=== PATIENT | female | born 1950 | race Caucasian/White ===

== ENCOUNTER 2022-04-22 06:05 | Day surgery (SDC) | payer MEDICARE ==
[2022-04-21 11:07] LABS: BASOPHILS % (AUTO) 0.6 % (0-1); EOSINOPHILS # (AUTO) 0.2 X10'3 (0-0.9); EOSINOPHILS % (AUTO) 1.7 % (0-6); HEMATOCRIT 43.7 % (35.0-45.0); HEMOGLOBIN 14.6 g/dl (12.0-16.0); LYMPHOCYTES # (AUTO) 1.8 X10'3 (1.1-4.8); LYMPHOCYTES % (AUTO) 20.4 % (21-51); MEAN CORPUSCULAR HEMOGLOBIN 30.6 PG (27.0-31.0); MEAN CORPUSCULAR HGB CONC 33.5 g/dL (33.0-36.5); MEAN CORPUSCULAR VOLUME 91.3 FL (78-98); MEAN PLATELET VOLUME 8.2 FL (7.4-10.4); MONOCYTES # (AUTO) 0.8 X10'3 (0-0.9); MONOCYTES % (AUTO) 8.9 % (2-12); NEUTROPHILS # (AUTO) 5.9 X10'3 (1.8-7.7); NEUTROPHILS % (AUTO) 68.4 % (42-75); PLATELET COUNT 261 X10'3 (140-440); RED BLOOD COUNT 4.79 X10'6 (4.20-5.60); RED CELL DISTRIBUTION WIDTH 14.6 % (11.5-14.5); WHITE BLOOD COUNT 8.7 X10'3 (4.5-11.0)
[2022-04-21 11:16] LABS: ALBUMIN 3.8 G/DL (3.4-5.0); ANION GAP 9 (8-16); BLOOD UREA NITROGEN 12 MG/DL (7-18); BUN/CREATININE RATIO 19.4 (6.6-38.0); CALCIUM 9.7 MG/DL (8.5-10.1); CHLORIDE 108 MMOL/L (99-107); CREATININE 0.62 MG/DL (0.40-0.90); GLUCOSE 93 MG/DL (70-104); POTASSIUM 3.9 MMOL/L (3.5-5.1); SODIUM 143 MMOL/L (135-145); TOTAL CARBON DIOXIDE 25.7 MMOL/L (24-32); eGFR > 90 ML/MIN
[2022-04-21 11:20] LABS: APTT 26 SECONDS (22-32)
[~2022-04-22] VITALS: Ht 157.5 cm; Wt 84.1 kg
[2022-04-22] VITALS (11 sets, daily range): BP systolic 136–161; BP diastolic 92–111
[~2022-04-22 06:05] MED LIST: ATOR10TA87 PO; LOSA25TA96 PO; METO200T49 PO
[2022-04-22] MEDS ORDERED: diphenhydrAMINE 25mg capsule PO PRN (06:25)
[2022-04-22] MEDS ORDERED: LORazepam 0.5 MG tablet PO PRN (06:25)
[2022-04-22] MEDS ORDERED: normal saline 1,000 ML IV SCH (06:25)
[2022-04-22] MEDS ORDERED: ALEN70TA80 PO (06:38)
[2022-04-22] MEDS ORDERED: APIX5TAB3 PO (06:38)
[2022-04-22] MEDS ORDERED: DILT-88 PO (06:38)
[2022-04-22] MEDS ORDERED: nitroGLYCERIN-Tridil 50MG/D5W 250 ML IV ONE (06:40)
[2022-04-22] MEDS ORDERED: iohexol 350MG/ML 100ml bottle IV ONE (06:41)
[2022-04-22] MEDS ORDERED: verapamil 2.5 mg/ml inj IV ONE (06:41)
[2022-04-22] MEDS ORDERED: midazolam 1 mg/ML 2ml injection ONE (06:41)
[2022-04-22] MEDS ORDERED: LIDOcaine 1% (10mg/ml) 2ml vial ONE (06:41)
[2022-04-22] MEDS ORDERED: heparin 1,000unit/ml 10ml vial 10 ML ONE (06:41)
[2022-04-22] MEDS ORDERED: fentaNYL/PF 50MCG/1 ML 2ML syringe ONE (06:42)
[2022-04-22] MEDS ORDERED: normal saline 1000ml 1,000 ML IV SCH (09:30)
[2022-04-22] MEDS ORDERED: pantoprazole 40mg Tablet.DR PO PRN (09:30)
== END 2022-04-22 15:00 | disposition home or self-care (01) ==
LOC: SSTAY O 06:05
PROVIDERS: ATTEND Internal Medicine Cardiovascular Disease
DX: R94.39 Abnormal result of other cardiovascular function study (principal); R07.9 Chest pain, unspecified; E78.5 Hyperlipidemia, unspecified; I25.10 Atherosclerotic heart disease of native coronary artery without angina pectoris; I10 Essential (primary) hypertension; I34.0 Nonrheumatic mitral (valve) insufficiency; I48.91 Unspecified atrial fibrillation; G47.30 Sleep apnea, unspecified; Z79.899 Other long term (current) drug therapy; Z98.890 Other specified postprocedural states
CPT/HCPCS: 36415; 76937; 80048; 85025; 85610; 85730; 93005; 93458; 99152; 99153; C1769; C1894; J1644; J2250; J3010; J3490; J7030; Q0163; Q9967; A4620; A5120; A6258; A6402

== ENCOUNTER 2022-11-11 13:56 | Outpatient (CLI) | payer MEDICARE ==
[~2022-11-11 13:56] MED LIST changes: +ALEN70TA80 PO; +APIX5TAB3 PO; -ATOR10TA87 PO; +ATOR20TA PO; +DILT240C90 PO; +FURO20TA4 PO; +LOSA100T3 PO; -LOSA25TA96 PO; +NITR0.4T51 SL; +POTA-206 PO
== END 2022-11-11 23:59 | disposition home or self-care (01) ==
LOC: CARD DIAG 13:56
PROVIDERS: ATTEND Internal Medicine Cardiovascular Disease
DX: I08.3 Combined rheumatic disorders of mitral, aortic and tricuspid valves (principal); R06.02 Shortness of breath
CPT/HCPCS: 93306

== ENCOUNTER 2024-07-20 10:30 | Day surgery (SDC) | payer MEDICARE ==
[2024-07-19 12:18] LABS: BASOPHILS % (AUTO) 0.6 % (0-1); EOSINOPHILS # (AUTO) 0.2 X10'3 (0-0.9); EOSINOPHILS % (AUTO) 2.5 % (0-6); HEMATOCRIT 43.2 % (35.0-45.0); HEMOGLOBIN 14.7 g/dl (12.0-16.0); LYMPHOCYTES % (AUTO) 25.5 % (21-51); MEAN CORPUSCULAR HEMOGLOBIN 31.5 PG (27.0-31.0); MEAN CORPUSCULAR HGB CONC 34.1 g/dL (33.0-36.5); MEAN CORPUSCULAR VOLUME 92.3 FL (78-98); MEAN PLATELET VOLUME 8.5 FL (7.4-10.4); MONOCYTES # (AUTO) 0.7 X10'3 (0-0.9); MONOCYTES % (AUTO) 9.6 % (2-12); NEUTROPHILS # (AUTO) 4.7 X10'3 (1.8-7.7); NEUTROPHILS % (AUTO) 61.8 % (42-75); PLATELET COUNT 262 X10'3 (140-440); RED BLOOD COUNT 4.68 X10'6 (4.20-5.60); WHITE BLOOD COUNT 7.7 X10'3 (4.5-11.0)
[2024-07-19 12:20] LABS: ALBUMIN 3.9 G/DL (3.4-5.0); ANION GAP 10 (8-16); BLOOD UREA NITROGEN 11 MG/DL (7-18); BUN/CREATININE RATIO 12.4 (10.0-20.0); CALCIUM 9.6 MG/DL (8.5-10.1); CHLORIDE 105 MMOL/L (99-107); CREATININE 0.89 MG/DL (0.40-0.90); GLUCOSE 102 MG/DL (70-104); POTASSIUM 4.6 MMOL/L (3.5-5.1); SODIUM 145 MMOL/L (135-145); TOTAL CARBON DIOXIDE 29.6 MMOL/L (24-32); eGFR 62 ML/MIN
[2024-07-19 12:23] LABS: APTT 27 SECONDS (22-32); INR 1.2 INR; PROTHROMBIN TIME 12.4 SECONDS (9.0-12.0)
[~2024-07-20] VITALS: Ht 157.5 cm; Wt 83.6 kg
[2024-07-20] VITALS (12 sets, daily range): BP systolic 117–137; BP diastolic 4–93; PULSE 70–82; RESP 11–20; TEMP 98.7; O2SAT 77–99
[~2024-07-20 10:30] MED LIST changes: +LOSA-418 PO; -LOSA100T3 PO; +METO200T37 PO; -METO200T49 PO
[2024-07-20] MEDS ORDERED: POTA-197 PO (11:01)
[2024-07-20] MEDS: LORazepam 0.5 MG tablet PO PRN (11:16)
[2024-07-20] MEDS: diphenhydrAMINE 25mg capsule PO PRN (11:16)
[2024-07-20] MEDS: normal saline 1,000 ML IV SCH (11:17)
[2024-07-20] MEDS ORDERED: LIDOcaine 1% (10mg/ml) 2ml vial ONE (11:24)
[2024-07-20] MEDS ORDERED: fentaNYL/PF 50MCG/1 ML 2ML syringe ONE (11:25)
[2024-07-20] MEDS ORDERED: verapamil 2.5 mg/ml inj IV ONE (11:25)
[2024-07-20] MEDS ORDERED: midazolam 1 mg/ML 2ml injection ONE (11:25)
[2024-07-20] MEDS ORDERED: iohexol 350 MG/ML 50ML vial IV ONE (11:25)
[2024-07-20] MEDS ORDERED: heparin 1,000unit/ml 10ml vial 10 ML ONE (11:25)
[2024-07-20] MEDS ORDERED: iohexol 350MG/ML 100ml bottle IV ONE (11:25)
[2024-07-20] MEDS ORDERED: nitroGLYCERIN 500mcg/5mL D5W 5 ML IV ONE ×2 (11:26→11:56)
[2024-07-20 12:11] LABS: ISTAT HGB ART 13.6 g/dl (12.0-16.0); ISTAT Hct ART 40 %PCV (35-45); ISTAT O2 SATURATION ARTERIAL 88 % (95-98); ISTAT SOURCE ART
[2024-07-20] MEDS ORDERED: LORazepam 0.5 MG tablet PO PRN (12:15)
[2024-08-01 15:32] LABS: ISTAT HGB MIX 13.3 g/dl (12.0-16.0); ISTAT Hct MIX 39 %PCV (35-45); ISTAT O2 SATURATION MIX VENOUS 56 % (60-80); ISTAT SOURCE VEN
== END 2024-07-20 17:00 | disposition home or self-care (01) ==
LOC: SSTAY O 10:30
PROVIDERS: ATTEND Internal Medicine Cardiovascular Disease
DX: I34.0 Nonrheumatic mitral (valve) insufficiency (principal); I25.10 Atherosclerotic heart disease of native coronary artery without angina pectoris; I11.0 Hypertensive heart disease with heart failure; I50.32 Chronic diastolic (congestive) heart failure; E78.5 Hyperlipidemia, unspecified; I48.20 Chronic atrial fibrillation, unspecified; G47.30 Sleep apnea, unspecified; Z79.01 Long term (current) use of anticoagulants; Z79.899 Other long term (current) drug therapy; Z90.49 Acquired absence of other specified parts of digestive tract; Z98.891 History of uterine scar from previous surgery; Z88.0 Allergy status to penicillin; Z82.3 Family history of stroke; Z82.49 Family history of ischemic heart disease and other diseases of the circulatory system; Z83.3 Family history of diabetes mellitus
CPT/HCPCS: 36415; 80048; 82803; 85014; 85025; 85610; 85730; 93005; 93460; 99152; A6258; A6402; C1725; C1751; C1894; J1644; J2003; J2250; J3010; J3490; J7030; Q0163; Q9967; Z7610; 99153; A6449

== ENCOUNTER 2024-10-17 11:40 | Emergency (ER) | payer MEDICARE ==
[~2024-10-17] VITALS: Ht 157.5 cm; Wt 82.8 kg
[~2024-10-17 11:40] MED LIST changes: -ALEN70TA80 PO; -LOSA-418 PO; +POTA-197 PO; -POTA-206 PO
[2024-10-17 13:31] VITALS: BP 126/78; PULSE 84; RESP 16; TEMP 98.8; O2SAT 98
== END 2024-10-17 13:32 | disposition home or self-care (01) ==
LOC: ER 11:40
DX: S20.211A Contusion of right front wall of thorax, initial encounter (principal); I48.91 Unspecified atrial fibrillation; Z88.0 Allergy status to penicillin; Z79.899 Other long term (current) drug therapy; Z87.442 Personal history of urinary calculi; Z72.89 Other problems related to lifestyle; Z60.2 Problems related to living alone; X58.XXXA Exposure to other specified factors, initial encounter; Y93.89 Activity, other specified; Y92.89 Other specified places as the place of occurrence of the external cause; Y99.8 Other external cause status
CPT/HCPCS: 71101; 99283

== ENCOUNTER 2025-03-11 08:38 | Outpatient (CLI) | payer MEDICARE ==
--- NOTE | 2025-03-11 11:45 | RADIOLOGY REPORT ---
PROCEDURE: MR MRI HEAD INDICATION: VERTIGO,ABNORMAL GAIT EXAM DATE: 03/11/2025 09:22 AM COMPARISON: None TECHNIQUE: MRI of the brain without intravenous contrast. FINDINGS: Limited by motion. Diffusion weighted images of the brain demonstrate no evidence of acute infarction. There is no evidence of acute intracranial hemorrhage, extra-axial collection, mass effect, midline s hift, herniation or hydrocephalus. The ventricles, sulci and cisterns appear age appropriate. Mild changes of chronic microvascular ischemic disease. There are no signal abnormalities on the susceptibility weighted sequences. The major vascular flow voids are present. The visualized paranasal sinuses and mastoid air cells are clear. The surrounding soft tissues and o sseous structures are unremarkable. IMPRESSION: 1. Limited by motion. No evidence of acute infarction, intracranial hemorrhage, mass effect or hydroc ephalus. Mild changes of chronic microvascular ischemic disease. HS:Y
== END 2025-03-11 23:59 | disposition home or self-care (01) ==
LOC: MRI 08:38
PROVIDERS: ATTEND Specialist
DX: I67.89 Other cerebrovascular disease (principal); H81.399 Other peripheral vertigo, unspecified ear; R26.9 Unspecified abnormalities of gait and mobility
CPT/HCPCS: 70551

== ENCOUNTER 2025-07-24 11:00 | Emergency (ER) | payer MEDICARE, OTHER ==
[~2025-07-24] VITALS: Ht 157.5 cm; Wt 83.8 kg
[2025-07-24 11:12] VITALS: BP 134/94; PULSE 74; RESP 18; O2SAT 96
[2025-07-24 12:32] VITALS: TEMP 98.1
[2025-07-24] MEDS ORDERED: HYDR-3965 PO ×2 (12:57→12:58)
--- NOTE | 2025-07-24 12:59 | Physician Documentation ---
History of Present Illness ~ Chief Complaint: Mechanical Fall Stated Complaint: RIB PAIN Time Seen by MD: 12:28 OK to notify your PCP?: No Primary Medical Doctor: Monico Francois HPI 75-year-old female presents to the ED after falling yesterday. She was seen by her primary care today and he sent her to the ED for an x-ray of her chest. Denies any head strikes but is positive for thinners. She says it hurts for her to take a deep breath. States that the pain is primarily in the sternal area. It is tender to touch and painful when taking a deep breath Day of Fall: Jul 24, 2025 Tetanus within 5 Years?: Yes Medication Reconciliation Allergies: Coded Allergies: penicillin V (Verified Allergy, Intermediate, RASH, ITCHING, 07/24/25) meperidine (Verified Adverse Reaction, Mild, N/V, 07/24/25) Scheduled Apixaban (Eliquis), 1 TAB PO Q12H, (Reported) Atorvastatin Calcium* (Lipitor*), 0.5 TABLET PO QPM, (Reported) Diltiazem Hcl (Cardizem Cd), 1 CAP PO DAILY Furosemide (Furosemide), 1 TAB PO DAILY Metoprolol Succinate (Metoprolol Succinate), 200 MG PO DAILY, (Reported) Potassium Chloride (Klor-Con M20), 1 TAB PO DAILY, (Reported) Scheduled PRN Hydrocodone Bit/Acetaminophen 5/325 MG (Preston 5/325 MG), 1 TAB PO Q6H PRN for pain Nitroglycerin SL* (Nitrostat SL*), 1 TAB SL Q5MIN PRN for Chest pain Q5min PRNx3-call MD, (Reported) Past Medical History Past Medical History: Atrial Fibrillation, Kidney Stones, UTI Past Surgical History: noncontributory Patient History: FH: CAD (coronary artery disease) MOTHER, , Age: 93 FH: stroke FATHER, , Age: 74 Polio MOTHER, , Age: 93 Alcohol Use: Occasionally Drug Use: none Lives with: Alone Lives In: Home Occupation: retired Review of Systems All Other Systems at this time: Reviewed and Negative ROS As stated above in the HPI, otherwise all systems are reviewed and negative. Physical Exam Vital Signs: Temperature: 98.1, Source: Temporal, Heart Rate: 74, Respiratory Rate: 18, BP: 134/94, Pulse Oximetry: 96, Weight: 83.800 Oxygen Flow Rate: 0 Physical Exam General: Alert, no apparent distress. Respiratory: Lungs clear, no respiratory distress. Chest: No accessory muscle use. Tender to sternum via palpation no rib tenderness Cardiovascular: Regular rate and rhythm, no murmurs. Neurologic: Oriented x4. Psychiatric: Normal mood and affect. Skin: Normal color, warm and dry. No edema, no ecchymosis. Progress Results/Orders Results/Orders Orders - BONI FIORE NP Zack Ribs With Pa Chest (07/24/25 12:33) Completed Orders - BONI FIORE NP Zack Ribs With Pa Chest (07/24/25 12:33) Vital Signs 07/24/25 07/24/25 11:12 12:32 Temp 97.0 98.1 Pulse 74 Resp 18 B/P (MAP) 134/94 Pulse Ox 96 O2 Flow Rate 0 Medical Decision Making Additional information obtaine: old records Findings i Do not appreciate any fractures at this time based on patient's chest x-ray and rib imaging. Based on her complaint I offered pain medicine for the next few days as she recovers, at this time I am going to discharge her for outpatient therapy and close follow up at her primary care Differential Dx:Considerations: Include: Closed head injury, Cardiac injury, Fracture(s), Intraabdominal injury, Pneumothorax, Cerebral contusion, Pulmonary contusion, Spine injury, Tracheal injury, Urological injury, Vascular injury, Abrasion(s), Contusion(s), Foreign body(s), Hematoma(s), Laceration(s), Encephalopathy, Other Departure Impression: Primary Impression: Fall Condition: Improved Discharge Instructions: Fall Prevention in the Home, Adult, [id number] Referrals: NO PRIMARY CARE PROVIDER (PCP) Prescriptions Hydrocodone Bit/Acetaminophen 5/325 MG (Preston 5/325 MG) 5 Mg/325 Mg Tablet 1 TAB PO Q6H PRN for pain, #14 TAB Prov: BONI FIORE NP 07/24/25 Education Educated: Patient Educated regarding: diagnosis Signature Scribe Signature: h Attestation: Scribed for Boni Fiore Deboner by Boni Dougherty NP . 07/24/25 13:17 BONI FIORE NP Jul 24, 2025 12:59
--- NOTE | 2025-07-24 13:06 | RADIOLOGY REPORT ---
[facility] EX[facility]: DI YVAN RIBS WITH PA CHEST INDICATION: cp after fall COMPARISON: DI UNI RIBS WITH PA CHEST on DOS: 10/17/24, CHEST,SINGLE VIEW on DOS: 05/24/22 TECHNIQUE: Frontal view of the chest and 3 views of the bilateral ribs history FINDINGS: No focal consolidation, pleural effusion or significant pneumothorax. Cardiomegaly. No displaced bilateral rib fracture. IMPRESSION: Cardiomegaly with CHF. No bilateral rib fracture.
== END 2025-07-24 13:36 | disposition home or self-care (01) ==
LOC: ER 11:01
DX: R07.89 Other chest pain (principal); I48.91 Unspecified atrial fibrillation; Z88.0 Allergy status to penicillin; Z88.5 Allergy status to narcotic agent; Z88.8 Allergy status to other drugs, medicaments and biological substances; W19.XXXA Unspecified fall, initial encounter; Y93.89 Activity, other specified; Y92.89 Other specified places as the place of occurrence of the external cause; Y99.8 Other external cause status
CPT/HCPCS: 71111; 99283